=== PATIENT | male | born 1995 | race Caucasian/White ===

== ENCOUNTER 2019-10-04 09:21 | Observation (INO) | payer BC ==
[2019-10-04] MEDS ORDERED: Sodium Chloride 0.9% 1000 ML 1,000 ML IV STA (09:37)
[2019-10-04] MEDS ORDERED: Sodium Chloride 0.9% 1000 ML 1,000 ML ONE (09:45)
[2019-10-04] MEDS ORDERED: MOTRIN 600 MG PO ONE (09:46)
[2019-10-04] MEDS ORDERED: TYLENOL 325 MG PO ONE (09:46)
[2019-10-04] MEDS ORDERED: MOTRIN 600 MG ONE (09:47)
[2019-10-04] MEDS ORDERED: TYLENOL 325 MG ONE (09:48)
--- NOTE | 2019-10-04 09:48 | ERPHSYRPT ---
- History of Present Illness Time Seen by Provider: 10/04/19 09:37 Source: patient Exam Limitations: no limitations Patient Subjective Stated Complaint: PT states "I have passed out at work a couple of times and I hit my head last night." Triage Nursing Assessment: PT presented alert and oriented X 3, skin pwd. PT ambualtes with an upright steady gait, able to speak in clear full sentences. Pt in no apparent respiratory distress. Physician History: Patient is a 24-year-old male with a history of high functioning autism who presents to our ED with complaints of syncope. Patient states he had 2 episodes of syncope within the past month. Patient's most recent syncopal episode was today. Patient states that syncope is preceded by feeling faint or lightheaded. Patient's last syncopal episode was associated with head trauma. He had the right side of his head however he was wearing a hard hat. No neck pain. Cervical spine cleared clinically. No neck pain photophobia. Timing/Duration: today Precipitating Factors: none Context: sitting Loss of Consciousness: brief (seconds) Charcter of event(s): collapsed Allergies/Adverse Reactions: No Known Drug Allergies Allergy (Unverified 10/04/19 09:38) Home Medications: No Reportable Medications [No Reported Medications] 10/04/19 [History] Hx Tetanus, Diphtheria Vaccination/Date Given: No Hx Influenza Vaccination/Date Given: No Hx Pneumococcal Vaccination/Date Given: No Immunizations Up to Date: Yes - Past Medical History Pertinent Past Medical History: Yes Other Medical History: high functioning autism - Past Surgical History Past Surgical History: Yes Other Surgical History: hernia surgery - Social History Smoking Status: Current every day smoker How long have you smoked: years Exposure to second hand smoke: Yes Drug Use: none Patient Lives Alone: No Physical Exam - Nursing Vital Signs Nursing Vital Signs: Initial Vital Signs Temperature 103.0 F 10/04/19 09:27 Pulse Rate 89 10/04/19 09:27 Respiratory Rate 18 10/04/19 09:27 Blood Pressure 126/74 10/04/19 09:27 O2 Sat by Pulse Oximetry 98 10/04/19 09:27 Pain Scale Pain Intensity 0 - Physical Exam SpO2: 97 - Course EKG Interpreted by Me: RATE, NORMAL AXIS, NORMAL INTERVALS - CT Exams Head CT Interpretation: Negative, Tele-radiologist Report Ordered Tests: Active Orders 24 hr Category Date Time Status Medical Fee Clerk STAT Care 10/04/19 09:38 Active EKG-ER Only STAT Care 10/04/19 09:37 Active IV Insertion STAT Care 10/04/19 09:37 Active Pulse Oximetry (ED) STAT Care 10/04/19 09:37 Active HEAD WITHOUT CONTRAST [CT] Stat Exams 10/04/19 09:38 Completed BLOOD CULTURE Stat Lab 10/04/19 10:33 Received CBC W DIFF Stat Lab 10/04/19 09:46 Completed CMP Stat Lab 10/04/19 09:46 Completed D-DIMER QUANTITATIVE Stat Lab 10/04/19 09:46 Completed Manual Differential NC Stat Lab 10/04/19 09:46 Completed PROTIME WITH INR Stat Lab 10/04/19 09:46 Completed TSH, 3RD Generation Stat Lab 10/04/19 09:50 Completed UA W/RFX UR CULTURE Stat Lab 10/04/19 10:42 Completed Urine Triage Profile Stat Lab 10/04/19 10:42 Completed Transfer Order Routine Transfer 10/04/19 Ordered Medication Summary Discontinued Medications Generic Name Dose Route Start Last Admin Trade Name Freq PRN Reason Stop Dose Admin Acetaminophen 975 mg 10/04/19 09:46 10/04/19 09:48 Tylenol 325 Mg PO 10/04/19 09:47 975 mg STAT ONE Administration Acetaminophen Confirm 10/04/19 09:48 Tylenol 325 Mg Administered 10/04/19 09:49 Dose 975 mg .ROUTE .STK-MED ONE Sodium Chloride 1,000 mls @ 999 mls/hr 10/04/19 09:37 10/04/19 10:58 Sodium Chloride 0.9% 1000 Ml IV 10/04/19 10:37 Infused .Q1H1M STA Infusion Sodium Chloride Confirm 10/04/19 09:45 Sodium Chloride 0.9% 1000 Ml Administered 10/04/19 09:46 Dose 1,000 mls @ ud .ROUTE .STK-MED ONE Ibuprofen 600 mg 10/04/19 09:46 10/04/19 09:48 Motrin 600 Mg PO 10/04/19 09:47 600 mg STAT ONE Administration Ibuprofen Confirm 10/04/19 09:47 Motrin 600 Mg Administered 10/04/19 09:48 Dose 600 mg .ROUTE .STK-MED ONE Lab/Rad Data: Laboratory Result Diagrams 10/04/19 09:46 10/04/19 09:46 Laboratory Results 10/04/19 10/04/19 10/04/19 Range/Units 10:42 10:42 10:33 WBC (4.0-10.5) K/mm3 RBC (4.1-5.6) M/mm3 Hgb (12.5-18.0) gm/dl Hct (42-50) % MCV (78-100) fl MCH (26-32) pg MCHC (32-36) g/dl RDW (11.5-14.0) % Plt Count (150-450) K/mm3 MPV (7.5-11.0) fl Segmented Neutrophils (36.-66.) % Band Neutrophils (0.0-2.0) % Lymphocytes (Manual) (24-44) % Monocytes (Manual) (0.0-12.0) % Atypical Lymphocytes % Platelet Estimate (NORMAL) RBC Morphology PT (8.83-12.87) SECONDS INR (0.8-3.0) D-Dimer (215-500) ng/mL Sodium (137-145) mmol/L Potassium (3.5-5.1) mmol/L Chloride (98-107) mmol/L Carbon Dioxide (22-30) mmol/L Anion Gap (5-15) MEQ/L BUN (9-20) mg/dL Creatinine (0.66-1.25) mg/dL Estimated GFR ML/MIN Glucose (74-106) mg/dL Calcium (8.4-10.2) mg/dL Total Bilirubin (0.2-1.3) mg/dL AST (17-59) U/L ALT (0-50) U/L Alkaline Phosphatase (38-126) U/L Serum Total Protein (6.3-8.2) g/dL Albumin (3.5-5.0) g/dL TSH 3rd Generation (0.47-4.68) mIU/L Urine Color YELLOW (YELLOW) Urine Appearance CLEAR (CLEAR) Urine pH 6.0 (5-6) Ur Specific [place] 1.020 (1.005-1.025) Urine Protein NEGATIVE (Negative) Urine Ketones NEGATIVE (NEGATIVE) Urine Blood NEGATIVE (0-5) Jeffry/ul Urine Nitrite NEGATIVE (NEGATIVE) Urine Bilirubin NEGATIVE (NEGATIVE) Urine Urobilinogen 4 (0-1) mg/dL Ur Leukocyte Esterase NEGATIVE (NEGATIVE) Urine WBC (Auto) 0-2 (0-5) /HPF Urine RBC (Auto) NONE (0-2) /HPF U Epithel Cells (Auto) NONE (FEW) /HPF Urine Bacteria (Auto) NONE (NEGATIVE) /HPF Urine Mucus (Auto) SLIGHT (NEGATIVE) /HPF Urine Culture Reflexed NO (NO) Urine Glucose NEGATIVE (NEGATIVE) mg/dL Urine Opiates Level NEGATIVE (NEGATIVE) Ur Methadone NEGATIVE (NEGATIVE) Urine Barbiturates NEGATIVE (NEGATIVE) Ur Phencyclidine (PCP) NEGATIVE (NEGATIVE) Urine Amphetamine NEGATIVE (NEGATIVE) U Benzodiazepine Level NEGATIVE (NEGATIVE) Urine Cocaine NEGATIVE (NEGATIVE) Urine Marijuana (THC) NEGATIVE (NEGATIVE) Influenza Type A Ag POSITIVE (NEGATIVE) Influenza Type B Ag NEGATIVE (NEGATIVE) RSV (PCR) NEGATIVE (Negative) 10/04/19 10/04/19 10/04/19 Range/Units 09:50 09:46 09:46 WBC (4.0-10.5) K/mm3 RBC (4.1-5.6) M/mm3 Hgb (12.5-18.0) gm/dl Hct (42-50) % MCV (78-100) fl MCH (26-32) pg MCHC (32-36) g/dl RDW (11.5-14.0) % Plt Count (150-450) K/mm3 MPV (7.5-11.0) fl Segmented Neutrophils (36.-66.) % Band Neutrophils (0.0-2.0) % Lymphocytes (Manual) (24-44) % Monocytes (Manual) (0.0-12.0) % Atypical Lymphocytes % Platelet Estimate (NORMAL) RBC Morphology PT 13.2 H (8.83-12.87) SECONDS INR 1.16 (0.8-3.0) D-Dimer 372 (215-500) ng/mL Sodium 138 (137-145) mmol/L Potassium 3.8 (3.5-5.1) mmol/L Chloride 102 (98-107) mmol/L Carbon Dioxide 28 (22-30) mmol/L Anion Gap 11.8 (5-15) MEQ/L BUN 14 (9-20) mg/dL Creatinine 1.00 (0.66-1.25) mg/dL Estimated GFR > 60.0 ML/MIN Glucose 87 (74-106) mg/dL Calcium 9.2 (8.4-10.2) mg/dL Total Bilirubin 0.50 (0.2-1.3) mg/dL AST 31 (17-59) U/L ALT 21 (0-50) U/L Alkaline Phosphatase 123 (38-126) U/L Serum Total Protein 8.3 H (6.3-8.2) g/dL Albumin 4.7 (3.5-5.0) g/dL TSH 3rd Generation 0.230 L (0.47-4.68) mIU/L Urine Color (YELLOW) Urine Appearance (CLEAR) Urine pH (5-6) Ur Specific [place] (1.005-1.025) Urine Protein (Negative) Urine Ketones (NEGATIVE) Urine Blood (0-5) Jeffry/ul Urine Nitrite (NEGATIVE) Urine Bilirubin (NEGATIVE) Urine Urobilinogen (0-1) mg/dL Ur Leukocyte Esterase (NEGATIVE) Urine WBC (Auto) (0-5) /HPF Urine RBC (Auto) (0-2) /HPF U Epithel Cells (Auto) (FEW) /HPF Urine Bacteria (Auto) (NEGATIVE) /HPF Urine Mucus (Auto) (NEGATIVE) /HPF Urine Culture Reflexed (NO) Urine Glucose (NEGATIVE) mg/dL Urine Opiates Level (NEGATIVE) Ur Methadone (NEGATIVE) Urine Barbiturates (NEGATIVE) Ur Phencyclidine (PCP) (NEGATIVE) Urine Amphetamine (NEGATIVE) U Benzodiazepine Level (NEGATIVE) Urine Cocaine (NEGATIVE) Urine Marijuana (THC) (NEGATIVE) Influenza Type A Ag (NEGATIVE) Influenza Type B Ag (NEGATIVE) RSV (PCR) (Negative) 10/04/19 Range/Units 09:46 WBC 5.3 (4.0-10.5) K/mm3 RBC 4.85 (4.1-5.6) M/mm3 Hgb 14.2 (12.5-18.0) gm/dl Hct 41.6 L (42-50) % MCV 85.8 (78-100) fl MCH 29.3 (26-32) pg MCHC 34.1 (32-36) g/dl RDW 13.2 (11.5-14.0) % Plt Count 217 (150-450) K/mm3 MPV 9.7 (7.5-11.0) fl Segmented Neutrophils 78 H (36.-66.) % Band Neutrophils 1 (0.0-2.0) % Lymphocytes (Manual) 11 L (24-44) % Monocytes (Manual) 9 (0.0-12.0) % Atypical Lymphocytes 1 % Platelet Estimate NORMAL (NORMAL) RBC Morphology NORMAL PT (8.83-12.87) SECONDS INR (0.8-3.0) D-Dimer (215-500) ng/mL Sodium (137-145) mmol/L Potassium (3.5-5.1) mmol/L Chloride (98-107) mmol/L Carbon Dioxide (22-30) mmol/L Anion Gap (5-15) MEQ/L BUN (9-20) mg/dL Creatinine (0.66-1.25) mg/dL Estimated GFR ML/MIN Glucose (74-106) mg/dL Calcium (8.4-10.2) mg/dL Total Bilirubin (0.2-1.3) mg/dL AST (17-59) U/L ALT (0-50) U/L Alkaline Phosphatase (38-126) U/L Serum Total Protein (6.3-8.2) g/dL Albumin (3.5-5.0) g/dL TSH 3rd Generation (0.47-4.68) mIU/L Urine Color (YELLOW) Urine Appearance (CLEAR) Urine pH (5-6) Ur Specific [place] (1.005-1.025) Urine Protein (Negative) Urine Ketones (NEGATIVE) Urine Blood (0-5) Jeffry/ul Urine Nitrite (NEGATIVE) Urine Bilirubin (NEGATIVE) Urine Urobilinogen (0-1) mg/dL Ur Leukocyte Esterase (NEGATIVE) Urine WBC (Auto) (0-5) /HPF Urine RBC (Auto) (0-2) /HPF U Epithel Cells (Auto) (FEW) /HPF Urine Bacteria (Auto) (NEGATIVE) /HPF Urine Mucus (Auto) (NEGATIVE) /HPF Urine Culture Reflexed (NO) Urine Glucose (NEGATIVE) mg/dL Urine Opiates Level (NEGATIVE) Ur Methadone (NEGATIVE) Urine Barbiturates (NEGATIVE) Ur Phencyclidine (PCP) (NEGATIVE) Urine Amphetamine (NEGATIVE) U Benzodiazepine Level (NEGATIVE) Urine Cocaine (NEGATIVE) Urine Marijuana (THC) (NEGATIVE) Influenza Type A Ag (NEGATIVE) Influenza Type B Ag (NEGATIVE) RSV (PCR) (Negative) - Progress Progress Note: 10/04/19 11:42 Patient reassessed. He feels somewhat better. Work-up reveals that patient is influenza A positive. He additionally has hypothyroidism. In light of his syncope and collapse, ongoing generalized weakness we will admit patient to observation for further evaluation and treatment. Plan of care discussed with patient. He agrees to admission [facility] for further evaluation and treatment. Case discussed with Dr. Hong who accepts admission to observation. Discussed with : Lev Will see patient in: hospital (observation) Counseled pt/family regarding: lab results, diagnosis, need for follow-up, rad results - Departure Departure Disposition: In-patient Admission Clinical Impression: Syncope and collapse, Influenza A, Hyperthyroidism, Generalized weakness Condition: Stable Critical Care Time: No Referrals: DOCTOR,NO FAMILY [Primary Care Provider] - Additional Instructions: Admission Note: The patient, RILEY CARRILLO, 24 y/o, M admitted by , was given written information regarding hospital policies, unit procedures and contact persons. Patient was admitted after showing signs of generalized weakness, hypothyroidism and syncope.
[2019-10-04 09:54] LABS: Hematocrit 41.6 % (42-50); Hemoglobin 14.2 gm/dl (12.5-18.0); Mean Cell Volume 85.8 fl (78-100); Mean Corpuscular Hemoglobin 29.3 pg (26-32); Mean Corpuscular Hgb Concent. 34.1 g/dl (32-36); Mean Platelet Volume 9.7 fl (7.5-11.0); Platelet Count 217 K/mm3 (150-450); Red Blood Count 4.85 M/mm3 (4.1-5.6); Red Cell Distribution Width 13.2 % (11.5-14.0); White Blood Count 5.3 K/mm3 (4.0-10.5)
--- NOTE | 2019-10-04 09:59 | XRAY ---
Indication: Syncope. Right head injury. Multiple contiguous axial images obtained through the head without contrast. Comparison: None Normal appearing brain parenchyma, ventricles, and bony calvarium. Visualized paranasal sinuses and mastoid air cells are clear. Impression: Normal CT head without contrast exam.
[2019-10-04 10:02] LABS: INR 1.16 (0.8-3.0); PROTIME 13.2 SECONDS (8.83-12.87)
[2019-10-04 10:08] LABS: ALBUMIN 4.7 g/dL (3.5-5.0); ALKALINE PHOSPHATASE 123 U/L (38-126); ANION GAP 11.8 MEQ/L (5-15); BLOOD UREA NITROGEN 14 mg/dL (9-20); CHLORIDE 102 mmol/L (98-107); Calcium 9.2 mg/dL (8.4-10.2); Carbon Dioxide 28 mmol/L (22-30); Glucose 87 mg/dL (74-106); Potassium 3.8 mmol/L (3.5-5.1); SGOT/AST 31 U/L (17-59); SGPT/ALT 21 U/L (0-50); SODIUM 138 mmol/L (137-145); Total Protein 8.3 g/dL (6.3-8.2)
[2019-10-04 11:00] LABS: Appearance CLEAR (CLEAR); Bilirubin NEGATIVE (NEGATIVE); Blood NEGATIVE Ery/ul (0-5); Glucose NEGATIVE (NEGATIVE); Ketones NEGATIVE (NEGATIVE); Leukocyte Esterase NEGATIVE (NEGATIVE); Mucus SLIGHT /HPF (NEGATIVE); Nitrite NEGATIVE (NEGATIVE); Protein,Urine Dip NEGATIVE (Negative); Urobilinogen 4 mg/dL (0-1); WBC 0-2 /HPF (0-5)
[2019-10-04 11:22] LABS: INFLUENZA A POSITIVE (NEGATIVE); INFLUENZA B NEGATIVE (NEGATIVE); RESPIRATORY SYNCTIAL VIRUS NEGATIVE (Negative)
[2019-10-04 11:26] LABS: Amphetamine,Urine NEGATIVE (NEGATIVE); Barbiturate,Urine NEGATIVE (NEGATIVE); Benzodiazepine,Urine NEGATIVE (NEGATIVE); Cocaine,Urine NEGATIVE (NEGATIVE); Methadone,Urine NEGATIVE (NEGATIVE); Opiate,Urine NEGATIVE (NEGATIVE); PCP,Urine NEGATIVE (NEGATIVE); THC,Urine NEGATIVE (NEGATIVE)
[2019-10-04 11:32] LABS: ATYPICAL LYMPHS 1 %; BAND 1 % (0.0-2.0); Lymphocytes 11 % (24-44); Monocyte 9 % (0.0-12.0); Neutrophils 78 % (36.-66.); Total Cells Counted 100
[2019-10-04 11:33] LABS: Platelet Estimate NORMAL (NORMAL)
[2019-10-04] MEDS: Sodium Chloride 0.9% 1000 ML 1,000 ML IV SCH ×2 (12:42→22:47)
--- NOTE | 2019-10-04 17:45 | PCM.HP ---
History of Present Illness - Chief Complaint Chief Complaint: syncope History of Present Illness: is a 24 year old male pt with no local MD, with high functioning autism , who came to ER after syncopal episode last night. He is a fairly poor historian. He was found to have Influenza A and does state he's had a cough for "a while" but less than a week. He was standing in a meeting, started feeling hot, tried to sit down and missed and passed completely out. About a month and a half ago he passed out as well. - Review of Systems Constitutional: Fever (103 on admission), Weakness Respiratory: Cough, Short Of Breath Neurological: Other (syncope) All Other Systems: Reviewed and Negative Medications & Allergies Home Medications: Home Medication List No Reportable Medications [No Reported Medications] 10/04/19 [History Confirmed 10/04/19] Allergies/Adverse Reactions: Allergies Allergy/AdvReac Type Severity Reaction Status Date / Time No Known Drug Allergies Allergy Unverified 10/04/19 09:38 - Past Medical History Past Medical History: Yes Comment: high functioning autism - Past Surgical History Past Surgical History: Yes Other Surgical History: hernia surgery - Social History Smoking Status: Current every day smoker How long have you smoked: 5 years Exposure to second hand smoke: Yes Alcohol: Rarely Drug Use: none - Physical Exam Vital Signs: Vital Signs - 24 hr Temp Pulse Resp BP Pulse Ox 10/04/19 15:54 98.2 F 82 18 98/56 98 10/04/19 13:14 99.8 F 90 18 96/47 95 10/04/19 11:54 99.8 F 90 96/47 95 10/04/19 11:44 97 10/04/19 11:36 100.1 F 98 H 18 100/52 96 10/04/19 10:58 92 H 16 93/55 97 10/04/19 10:23 93 H 18 113/64 99 10/04/19 09:41 97 10/04/19 09:27 103.0 F 89 18 126/74 98 General Appearance: no apparent distress, alert, other (somewhat disheveled) Neurologic Exam: oriented x 3, cooperative, other (decreased affect) Eye Exam: eyes nml inspection, other (fair eye contact) Ears, Nose, Throat Exam: moist mucous membranes Neck Exam: normal inspection, non-tender, No thyromegaly Respiratory Exam: lungs clear, diminished breath sounds, No crackles/rales, No rhonchi, No wheezing Cardiovascular Exam: regular rate/rhythm, normal heart sounds, No murmur Gastrointestinal/Abdomen Exam: soft, normal bowel sounds, No tenderness, No distention, No mass, No guarding, No rebound Extremity Exam: normal inspection, No pedal edema, No swelling Skin Exam: normal color, warm, dry, No rash Results - Labs Lab/Micro Results: Lab Results-Last 24 Hours 10/04/19 10/04/19 10/04/19 Range/Units 09:46 09:46 09:46 WBC 5.3 (4.0-10.5) K/mm3 RBC 4.85 (4.1-5.6) M/mm3 Hgb 14.2 (12.5-18.0) gm/dl Hct 41.6 L (42-50) % MCV 85.8 (78-100) fl MCH 29.3 (26-32) pg MCHC 34.1 (32-36) g/dl RDW 13.2 (11.5-14.0) % Plt Count 217 (150-450) K/mm3 MPV 9.7 (7.5-11.0) fl Segmented Neutrophils 78 H (36.-66.) % Band Neutrophils 1 (0.0-2.0) % Lymphocytes (Manual) 11 L (24-44) % Monocytes (Manual) 9 (0.0-12.0) % Atypical Lymphocytes 1 % Platelet Estimate NORMAL (NORMAL) RBC Morphology NORMAL PT 13.2 H (8.83-12.87) SECONDS INR 1.16 (0.8-3.0) D-Dimer 372 (215-500) ng/mL Sodium 138 (137-145) mmol/L Potassium 3.8 (3.5-5.1) mmol/L Chloride 102 (98-107) mmol/L Carbon Dioxide 28 (22-30) mmol/L Anion Gap 11.8 (5-15) MEQ/L BUN 14 (9-20) mg/dL Creatinine 1.00 (0.66-1.25) mg/dL Estimated GFR > 60.0 ML/MIN Glucose 87 (74-106) mg/dL Calcium 9.2 (8.4-10.2) mg/dL Total Bilirubin 0.50 (0.2-1.3) mg/dL AST 31 (17-59) U/L ALT 21 (0-50) U/L Alkaline Phosphatase 123 (38-126) U/L Serum Total Protein 8.3 H (6.3-8.2) g/dL Albumin 4.7 (3.5-5.0) g/dL TSH 3rd Generation (0.47-4.68) mIU/L Urine Color (YELLOW) Urine Appearance (CLEAR) Urine pH (5-6) Ur Specific [place] (1.005-1.025) Urine Protein (Negative) Urine Ketones (NEGATIVE) Urine Blood (0-5) Jeffry/ul Urine Nitrite (NEGATIVE) Urine Bilirubin (NEGATIVE) Urine Urobilinogen (0-1) mg/dL Ur Leukocyte Esterase (NEGATIVE) Urine WBC (Auto) (0-5) /HPF Urine RBC (Auto) (0-2) /HPF U Epithel Cells (Auto) (FEW) /HPF Urine Bacteria (Auto) (NEGATIVE) /HPF Urine Mucus (Auto) (NEGATIVE) /HPF Urine Culture Reflexed (NO) Urine Glucose (NEGATIVE) mg/dL Urine Opiates Level (NEGATIVE) Ur Methadone (NEGATIVE) Urine Barbiturates (NEGATIVE) Ur Phencyclidine (PCP) (NEGATIVE) Urine Amphetamine (NEGATIVE) U Benzodiazepine Level (NEGATIVE) Urine Cocaine (NEGATIVE) Urine Marijuana (THC) (NEGATIVE) Influenza Type A Ag (NEGATIVE) Influenza Type B Ag (NEGATIVE) RSV (PCR) (Negative) 10/04/19 10/04/19 10/04/19 Range/Units 09:50 10:33 10:42 WBC (4.0-10.5) K/mm3 RBC (4.1-5.6) M/mm3 Hgb (12.5-18.0) gm/dl Hct (42-50) % MCV (78-100) fl MCH (26-32) pg MCHC (32-36) g/dl RDW (11.5-14.0) % Plt Count (150-450) K/mm3 MPV (7.5-11.0) fl Segmented Neutrophils (36.-66.) % Band Neutrophils (0.0-2.0) % Lymphocytes (Manual) (24-44) % Monocytes (Manual) (0.0-12.0) % Atypical Lymphocytes % Platelet Estimate (NORMAL) RBC Morphology PT (8.83-12.87) SECONDS INR (0.8-3.0) D-Dimer (215-500) ng/mL Sodium (137-145) mmol/L Potassium (3.5-5.1) mmol/L Chloride (98-107) mmol/L Carbon Dioxide (22-30) mmol/L Anion Gap (5-15) MEQ/L BUN (9-20) mg/dL Creatinine (0.66-1.25) mg/dL Estimated GFR ML/MIN Glucose (74-106) mg/dL Calcium (8.4-10.2) mg/dL Total Bilirubin (0.2-1.3) mg/dL AST (17-59) U/L ALT (0-50) U/L Alkaline Phosphatase (38-126) U/L Serum Total Protein (6.3-8.2) g/dL Albumin (3.5-5.0) g/dL TSH 3rd Generation 0.230 L (0.47-4.68) mIU/L Urine Color YELLOW (YELLOW) Urine Appearance CLEAR (CLEAR) Urine pH 6.0 (5-6) Ur Specific [place] 1.020 (1.005-1.025) Urine Protein NEGATIVE (Negative) Urine Ketones NEGATIVE (NEGATIVE) Urine Blood NEGATIVE (0-5) Jeffry/ul Urine Nitrite NEGATIVE (NEGATIVE) Urine Bilirubin NEGATIVE (NEGATIVE) Urine Urobilinogen 4 (0-1) mg/dL Ur Leukocyte Esterase NEGATIVE (NEGATIVE) Urine WBC (Auto) 0-2 (0-5) /HPF Urine RBC (Auto) NONE (0-2) /HPF U Epithel Cells (Auto) NONE (FEW) /HPF Urine Bacteria (Auto) NONE (NEGATIVE) /HPF Urine Mucus (Auto) SLIGHT (NEGATIVE) /HPF Urine Culture Reflexed NO (NO) Urine Glucose NEGATIVE (NEGATIVE) mg/dL Urine Opiates Level (NEGATIVE) Ur Methadone (NEGATIVE) Urine Barbiturates (NEGATIVE) Ur Phencyclidine (PCP) (NEGATIVE) Urine Amphetamine (NEGATIVE) U Benzodiazepine Level (NEGATIVE) Urine Cocaine (NEGATIVE) Urine Marijuana (THC) (NEGATIVE) Influenza Type A Ag POSITIVE (NEGATIVE) Influenza Type B Ag NEGATIVE (NEGATIVE) RSV (PCR) NEGATIVE (Negative) 10/04/19 Range/Units 10:42 WBC (4.0-10.5) K/mm3 RBC (4.1-5.6) M/mm3 Hgb (12.5-18.0) gm/dl Hct (42-50) % MCV (78-100) fl MCH (26-32) pg MCHC (32-36) g/dl RDW (11.5-14.0) % Plt Count (150-450) K/mm3 MPV (7.5-11.0) fl Segmented Neutrophils (36.-66.) % Band Neutrophils (0.0-2.0) % Lymphocytes (Manual) (24-44) % Monocytes (Manual) (0.0-12.0) % Atypical Lymphocytes % Platelet Estimate (NORMAL) RBC Morphology PT (8.83-12.87) SECONDS INR (0.8-3.0) D-Dimer (215-500) ng/mL Sodium (137-145) mmol/L Potassium (3.5-5.1) mmol/L Chloride (98-107) mmol/L Carbon Dioxide (22-30) mmol/L Anion Gap (5-15) MEQ/L BUN (9-20) mg/dL Creatinine (0.66-1.25) mg/dL Estimated GFR ML/MIN Glucose (74-106) mg/dL Calcium (8.4-10.2) mg/dL Total Bilirubin (0.2-1.3) mg/dL AST (17-59) U/L ALT (0-50) U/L Alkaline Phosphatase (38-126) U/L Serum Total Protein (6.3-8.2) g/dL Albumin (3.5-5.0) g/dL TSH 3rd Generation (0.47-4.68) mIU/L Urine Color (YELLOW) Urine Appearance (CLEAR) Urine pH (5-6) Ur Specific [place] (1.005-1.025) Urine Protein (Negative) Urine Ketones (NEGATIVE) Urine Blood (0-5) Jeffry/ul Urine Nitrite (NEGATIVE) Urine Bilirubin (NEGATIVE) Urine Urobilinogen (0-1) mg/dL Ur Leukocyte Esterase (NEGATIVE) Urine WBC (Auto) (0-5) /HPF Urine RBC (Auto) (0-2) /HPF U Epithel Cells (Auto) (FEW) /HPF Urine Bacteria (Auto) (NEGATIVE) /HPF Urine Mucus (Auto) (NEGATIVE) /HPF Urine Culture Reflexed (NO) Urine Glucose (NEGATIVE) mg/dL Urine Opiates Level NEGATIVE (NEGATIVE) Ur Methadone NEGATIVE (NEGATIVE) Urine Barbiturates NEGATIVE (NEGATIVE) Ur Phencyclidine (PCP) NEGATIVE (NEGATIVE) Urine Amphetamine NEGATIVE (NEGATIVE) U Benzodiazepine Level NEGATIVE (NEGATIVE) Urine Cocaine NEGATIVE (NEGATIVE) Urine Marijuana (THC) NEGATIVE (NEGATIVE) Influenza Type A Ag (NEGATIVE) Influenza Type B Ag (NEGATIVE) RSV (PCR) (Negative) - Radiology Impressions Radiology Exams & Impressions: Radiology Procedures Category Date Time Status HEAD WITHOUT CONTRAST [CT] Stat Exams 10/04/19 09:38 Completed Assessment/Plan (1) Syncope and collapse Current Visit: Yes Status: Acute Assessment & Plan: WIll do echo and MRI brain tomorrow. Orthostats. Could be related to flu A for this episode but did have a previous episode. Head CT neg in ER. Code(s): R55 - SYNCOPE AND COLLAPSE (2) Influenza A Current Visit: Yes Status: Acute Assessment & Plan: Will start Tamiflu as I'm unsure how long he's been sick. CXR. Code(s): J10.1 - FLU DUE TO OTH IDENT INFLUENZA VIRUS W OTH RESP MANIFEST (3) Generalized weakness Current Visit: Yes Status: Acute Code(s): R53.1 - WEAKNESS (4) Hyperthyroidism Current Visit: Yes Status: Acute Assessment & Plan: check T3/T4 Code(s): E05.90 - THYROTOXICOSIS, UNSP WITHOUT THYROTOXIC CRISIS OR STORM
[2019-10-04] MEDS: Tamiflu 75MG Capsule PO SCH ×2 (18:45→21:15)
[2019-10-04] MEDS: TYLENOL 325 MG PO PRN (22:30)
[2019-10-05] MEDS: TYLENOL 325 MG PO PRN ×3 (03:43→17:00)
[2019-10-05 05:43] LABS: Hematocrit 38.1 % (42-50); Mean Cell Volume 86.2 fl (78-100); Mean Corpuscular Hemoglobin 29.4 pg (26-32); Mean Corpuscular Hgb Concent. 34.1 g/dl (32-36); Mean Platelet Volume 10.2 fl (7.5-11.0); Platelet Count 163 K/mm3 (150-450); Red Blood Count 4.42 M/mm3 (4.1-5.6); Red Cell Distribution Width 13.2 % (11.5-14.0); White Blood Count 4.1 K/mm3 (4.0-10.5)
[2019-10-05 06:14] LABS: ALBUMIN 3.8 g/dL (3.5-5.0); ALKALINE PHOSPHATASE 102 U/L (38-126); ANION GAP 7.1 MEQ/L (5-15); BLOOD UREA NITROGEN 10 mg/dL (9-20); CHLORIDE 107 mmol/L (98-107); Calcium 8.6 mg/dL (8.4-10.2); Carbon Dioxide 24 mmol/L (22-30); Creatinine 1 0.84 mg/dL (0.66-1.25); Glucose 95 mg/dL (74-106); Potassium 4.2 mmol/L (3.5-5.1); SGOT/AST 30 U/L (17-59); SGPT/ALT 17 U/L (0-50); SODIUM 134 mmol/L (137-145); Total Protein 6.8 g/dL (6.3-8.2)
[2019-10-05 06:16] LABS: TROPONIN < 0.012 ng/mL (0.000-0.034)
[2019-10-05 06:39] LABS: ATYPICAL LYMPHS 2 %; BAND 3 % (0.0-2.0); Lymphocytes 33 % (24-44); Monocyte 8 % (0.0-12.0); Neutrophils 54 % (36.-66.); Platelet Estimate NORMAL (NORMAL); Total Cells Counted 100
[2019-10-05] MEDS ORDERED: Valium 5 MG PO PRN (08:35)
--- NOTE | 2019-10-05 08:35 | PCM.NOTE ---
Date and Time: 10/05/19830 Subjective Assessment: He had temp to 103 at 0927 yesterday, and to 102.3 at midnight last night. He says he's feeling better. Grandma at bedside today. He has been eating OK, although really didn't feel like eating last night when he was "hot." - Review of Systems Constitutional: Fever Respiratory: Cough Abdominal/Gastrointestinal: Appetite Changes Objective Exam General Appearance: no apparent distress, alert Neurologic Exam: oriented x 3, cooperative Skin Exam: normal color, warm, dry, No rash Respiratory Exam: lungs clear, diminished breath sounds, No crackles/rales, No wheezing Cardiovascular Exam: regular rate/rhythm, normal heart sounds, No murmur Gastrointestinal/Abdomen Exam: soft, normal bowel sounds, No tenderness, No distention, No mass, No guarding, No rebound OBJECTIVE DATA Vital Signs: Vital Signs - 24 hr Temp Pulse Resp BP Pulse Ox 10/05/19 07:27 99.2 F 85 16 108/62 96 10/05/19 04:00 102.0 F 80 18 98/50 98 10/05/19 00:00 102.3 F 88 20 102/60 96 10/04/19 20:00 20 10/04/19 19:00 101.0 F 83 22 100/60 98 10/04/19 15:54 98.2 F 82 18 98/56 98 10/04/19 13:14 99.8 F 90 18 96/47 95 10/04/19 11:54 99.8 F 90 96/47 95 10/04/19 11:44 97 10/04/19 11:36 100.1 F 98 H 18 100/52 96 10/04/19 10:58 92 H 16 93/55 97 10/04/19 10:23 93 H 18 113/64 99 10/04/19 09:41 97 10/04/19 09:27 103.0 F 89 18 126/74 98 Pain Assessment - Last Documented Pain Intensity 0 Pain Scale Used 0-10 Pain Scale Intake and Output: Intake & Output 10/02/19 10/03/19 10/04/19 10/05/19 11:59 11:59 11:59 11:59 Intake Total 1613 Output Total 1950 Balance -337 Weight 46.6 kg 48.3 kg Lab Results: Lab Results-Last 24 Hours 10/04/19 10/04/19 10/04/19 Range/Units 09:46 09:46 09:46 WBC 5.3 (4.0-10.5) K/mm3 RBC 4.85 (4.1-5.6) M/mm3 Hgb 14.2 (12.5-18.0) gm/dl Hct 41.6 L (42-50) % MCV 85.8 (78-100) fl MCH 29.3 (26-32) pg MCHC 34.1 (32-36) g/dl RDW 13.2 (11.5-14.0) % Plt Count 217 (150-450) K/mm3 MPV 9.7 (7.5-11.0) fl Segmented Neutrophils 78 H (36.-66.) % Band Neutrophils 1 (0.0-2.0) % Lymphocytes (Manual) 11 L (24-44) % Monocytes (Manual) 9 (0.0-12.0) % Atypical Lymphocytes 1 % Platelet Estimate NORMAL (NORMAL) RBC Morphology NORMAL PT 13.2 H (8.83-12.87) SECONDS INR 1.16 (0.8-3.0) D-Dimer 372 (215-500) ng/mL Sodium 138 (137-145) mmol/L Potassium 3.8 (3.5-5.1) mmol/L Chloride 102 (98-107) mmol/L Carbon Dioxide 28 (22-30) mmol/L Anion Gap 11.8 (5-15) MEQ/L BUN 14 (9-20) mg/dL Creatinine 1.00 (0.66-1.25) mg/dL Estimated GFR > 60.0 ML/MIN Glucose 87 (74-106) mg/dL Calcium 9.2 (8.4-10.2) mg/dL Total Bilirubin 0.50 (0.2-1.3) mg/dL AST 31 (17-59) U/L ALT 21 (0-50) U/L Alkaline Phosphatase 123 (38-126) U/L Troponin I (0.000-0.034) ng/mL Serum Total Protein 8.3 H (6.3-8.2) g/dL Albumin 4.7 (3.5-5.0) g/dL Free T4 (0.76-1.46) ng/dL TSH 3rd Generation (0.47-4.68) mIU/L Urine Color (YELLOW) Urine Appearance (CLEAR) Urine pH (5-6) Ur Specific [place] (1.005-1.025) Urine Protein (Negative) Urine Ketones (NEGATIVE) Urine Blood (0-5) Jeffry/ul Urine Nitrite (NEGATIVE) Urine Bilirubin (NEGATIVE) Urine Urobilinogen (0-1) mg/dL Ur Leukocyte Esterase (NEGATIVE) Urine WBC (Auto) (0-5) /HPF Urine RBC (Auto) (0-2) /HPF U Epithel Cells (Auto) (FEW) /HPF Urine Bacteria (Auto) (NEGATIVE) /HPF Urine Mucus (Auto) (NEGATIVE) /HPF Urine Culture Reflexed (NO) Urine Glucose (NEGATIVE) mg/dL Urine Opiates Level (NEGATIVE) Ur Methadone (NEGATIVE) Urine Barbiturates (NEGATIVE) Ur Phencyclidine (PCP) (NEGATIVE) Urine Amphetamine (NEGATIVE) U Benzodiazepine Level (NEGATIVE) Urine Cocaine (NEGATIVE) Urine Marijuana (THC) (NEGATIVE) Influenza Type A Ag (NEGATIVE) Influenza Type B Ag (NEGATIVE) RSV (PCR) (Negative) 10/04/19 10/04/19 10/04/19 Range/Units 09:50 10:33 10:42 WBC (4.0-10.5) K/mm3 RBC (4.1-5.6) M/mm3 Hgb (12.5-18.0) gm/dl Hct (42-50) % MCV (78-100) fl MCH (26-32) pg MCHC (32-36) g/dl RDW (11.5-14.0) % Plt Count (150-450) K/mm3 MPV (7.5-11.0) fl Segmented Neutrophils (36.-66.) % Band Neutrophils (0.0-2.0) % Lymphocytes (Manual) (24-44) % Monocytes (Manual) (0.0-12.0) % Atypical Lymphocytes % Platelet Estimate (NORMAL) RBC Morphology PT (8.83-12.87) SECONDS INR (0.8-3.0) D-Dimer (215-500) ng/mL Sodium (137-145) mmol/L Potassium (3.5-5.1) mmol/L Chloride (98-107) mmol/L Carbon Dioxide (22-30) mmol/L Anion Gap (5-15) MEQ/L BUN (9-20) mg/dL Creatinine (0.66-1.25) mg/dL Estimated GFR ML/MIN Glucose (74-106) mg/dL Calcium (8.4-10.2) mg/dL Total Bilirubin (0.2-1.3) mg/dL AST (17-59) U/L ALT (0-50) U/L Alkaline Phosphatase (38-126) U/L Troponin I (0.000-0.034) ng/mL Serum Total Protein (6.3-8.2) g/dL Albumin (3.5-5.0) g/dL Free T4 (0.76-1.46) ng/dL TSH 3rd Generation 0.230 L (0.47-4.68) mIU/L Urine Color YELLOW (YELLOW) Urine Appearance CLEAR (CLEAR) Urine pH 6.0 (5-6) Ur Specific [place] 1.020 (1.005-1.025) Urine Protein NEGATIVE (Negative) Urine Ketones NEGATIVE (NEGATIVE) Urine Blood NEGATIVE (0-5) Jeffry/ul Urine Nitrite NEGATIVE (NEGATIVE) Urine Bilirubin NEGATIVE (NEGATIVE) Urine Urobilinogen 4 (0-1) mg/dL Ur Leukocyte Esterase NEGATIVE (NEGATIVE) Urine WBC (Auto) 0-2 (0-5) /HPF Urine RBC (Auto) NONE (0-2) /HPF U Epithel Cells (Auto) NONE (FEW) /HPF Urine Bacteria (Auto) NONE (NEGATIVE) /HPF Urine Mucus (Auto) SLIGHT (NEGATIVE) /HPF Urine Culture Reflexed NO (NO) Urine Glucose NEGATIVE (NEGATIVE) mg/dL Urine Opiates Level (NEGATIVE) Ur Methadone (NEGATIVE) Urine Barbiturates (NEGATIVE) Ur Phencyclidine (PCP) (NEGATIVE) Urine Amphetamine (NEGATIVE) U Benzodiazepine Level (NEGATIVE) Urine Cocaine (NEGATIVE) Urine Marijuana (THC) (NEGATIVE) Influenza Type A Ag POSITIVE (NEGATIVE) Influenza Type B Ag NEGATIVE (NEGATIVE) RSV (PCR) NEGATIVE (Negative) 10/04/19 10/04/19 10/05/19 Range/Units 10:42 Unknown 04:55 WBC 4.1 (4.0-10.5) K/mm3 RBC 4.42 (4.1-5.6) M/mm3 Hgb 13.0 (12.5-18.0) gm/dl Hct 38.1 L (42-50) % MCV 86.2 (78-100) fl MCH 29.4 (26-32) pg MCHC 34.1 (32-36) g/dl RDW 13.2 (11.5-14.0) % Plt Count 163 (150-450) K/mm3 MPV 10.2 (7.5-11.0) fl Segmented Neutrophils 54 (36.-66.) % Band Neutrophils 3 H (0.0-2.0) % Lymphocytes (Manual) 33 (24-44) % Monocytes (Manual) 8 (0.0-12.0) % Atypical Lymphocytes 2 % Platelet Estimate NORMAL (NORMAL) RBC Morphology PT (8.83-12.87) SECONDS INR (0.8-3.0) D-Dimer (215-500) ng/mL Sodium (137-145) mmol/L Potassium (3.5-5.1) mmol/L Chloride (98-107) mmol/L Carbon Dioxide (22-30) mmol/L Anion Gap (5-15) MEQ/L BUN (9-20) mg/dL Creatinine (0.66-1.25) mg/dL Estimated GFR ML/MIN Glucose (74-106) mg/dL Calcium (8.4-10.2) mg/dL Total Bilirubin (0.2-1.3) mg/dL AST (17-59) U/L ALT (0-50) U/L Alkaline Phosphatase (38-126) U/L Troponin I (0.000-0.034) ng/mL Serum Total Protein (6.3-8.2) g/dL Albumin (3.5-5.0) g/dL Free T4 1.04 (0.76-1.46) ng/dL TSH 3rd Generation (0.47-4.68) mIU/L Urine Color (YELLOW) Urine Appearance (CLEAR) Urine pH (5-6) Ur Specific [place] (1.005-1.025) Urine Protein (Negative) Urine Ketones (NEGATIVE) Urine Blood (0-5) Jeffry/ul Urine Nitrite (NEGATIVE) Urine Bilirubin (NEGATIVE) Urine Urobilinogen (0-1) mg/dL Ur Leukocyte Esterase (NEGATIVE) Urine WBC (Auto) (0-5) /HPF Urine RBC (Auto) (0-2) /HPF U Epithel Cells (Auto) (FEW) /HPF Urine Bacteria (Auto) (NEGATIVE) /HPF Urine Mucus (Auto) (NEGATIVE) /HPF Urine Culture Reflexed (NO) Urine Glucose (NEGATIVE) mg/dL Urine Opiates Level NEGATIVE (NEGATIVE) Ur Methadone NEGATIVE (NEGATIVE) Urine Barbiturates NEGATIVE (NEGATIVE) Ur Phencyclidine (PCP) NEGATIVE (NEGATIVE) Urine Amphetamine NEGATIVE (NEGATIVE) U Benzodiazepine Level NEGATIVE (NEGATIVE) Urine Cocaine NEGATIVE (NEGATIVE) Urine Marijuana (THC) NEGATIVE (NEGATIVE) Influenza Type A Ag (NEGATIVE) Influenza Type B Ag (NEGATIVE) RSV (PCR) (Negative) 10/05/19 Range/Units 04:55 WBC (4.0-10.5) K/mm3 RBC (4.1-5.6) M/mm3 Hgb (12.5-18.0) gm/dl Hct (42-50) % MCV (78-100) fl MCH (26-32) pg MCHC (32-36) g/dl RDW (11.5-14.0) % Plt Count (150-450) K/mm3 MPV (7.5-11.0) fl Segmented Neutrophils (36.-66.) % Band Neutrophils (0.0-2.0) % Lymphocytes (Manual) (24-44) % Monocytes (Manual) (0.0-12.0) % Atypical Lymphocytes % Platelet Estimate (NORMAL) RBC Morphology PT (8.83-12.87) SECONDS INR (0.8-3.0) D-Dimer (215-500) ng/mL Sodium 134 L (137-145) mmol/L Potassium 4.2 (3.5-5.1) mmol/L Chloride 107 (98-107) mmol/L Carbon Dioxide 24 (22-30) mmol/L Anion Gap 7.1 (5-15) MEQ/L BUN 10 (9-20) mg/dL Creatinine 0.84 (0.66-1.25) mg/dL Estimated GFR > 60.0 ML/MIN Glucose 95 (74-106) mg/dL Calcium 8.6 (8.4-10.2) mg/dL Total Bilirubin 0.40 (0.2-1.3) mg/dL AST 30 (17-59) U/L ALT 17 (0-50) U/L Alkaline Phosphatase 102 (38-126) U/L Troponin I < 0.012 (0.000-0.034) ng/mL Serum Total Protein 6.8 (6.3-8.2) g/dL Albumin 3.8 (3.5-5.0) g/dL Free T4 (0.76-1.46) ng/dL TSH 3rd Generation (0.47-4.68) mIU/L Urine Color (YELLOW) Urine Appearance (CLEAR) Urine pH (5-6) Ur Specific [place] (1.005-1.025) Urine Protein (Negative) Urine Ketones (NEGATIVE) Urine Blood (0-5) Jeffry/ul Urine Nitrite (NEGATIVE) Urine Bilirubin (NEGATIVE) Urine Urobilinogen (0-1) mg/dL Ur Leukocyte Esterase (NEGATIVE) Urine WBC (Auto) (0-5) /HPF Urine RBC (Auto) (0-2) /HPF U Epithel Cells (Auto) (FEW) /HPF Urine Bacteria (Auto) (NEGATIVE) /HPF Urine Mucus (Auto) (NEGATIVE) /HPF Urine Culture Reflexed (NO) Urine Glucose (NEGATIVE) mg/dL Urine Opiates Level (NEGATIVE) Ur Methadone (NEGATIVE) Urine Barbiturates (NEGATIVE) Ur Phencyclidine (PCP) (NEGATIVE) Urine Amphetamine (NEGATIVE) U Benzodiazepine Level (NEGATIVE) Urine Cocaine (NEGATIVE) Urine Marijuana (THC) (NEGATIVE) Influenza Type A Ag (NEGATIVE) Influenza Type B Ag (NEGATIVE) RSV (PCR) (Negative) Radiology Exams: Radiology Procedures Category Date Time Status CHEST 2 VIEWS (PA AND LAT) Routine Exams 10/04/19 18:30 Taken ECHO W/2D AND DOPPLER [US] Routine Exams 10/05/19 09:00 Ordered HEAD WITHOUT CONTRAST [CT] Stat Exams 10/04/19 09:38 Completed MRI BRAIN W & W/O CONTRAST [MRI] Routine Exams 10/05/19 08:00 Ordered Assessment/Plan (1) Syncope and collapse Current Visit: Yes Status: Acute Assessment & Plan: Could be related to influenza, but he did have a previous episode of syncope also about a month and a half ago. Will get MRI brain and echocardiogram today. He has no local MD but plans to get a PCP after this stay. Code(s): R55 - SYNCOPE AND COLLAPSE (2) Influenza A Current Visit: Yes Status: Acute Assessment & Plan: Still febrile. He is better, and I would like him to stay until his fevers lessen, since the flu possibly made him ill enough to pass out prior to admission. Code(s): J10.1 - FLU DUE TO OTH IDENT INFLUENZA VIRUS W OTH RESP MANIFEST (3) Generalized weakness Current Visit: Yes Status: Acute Code(s): R53.1 - WEAKNESS (4) Hyperthyroidism Current Visit: Yes Status: Acute Assessment & Plan: May be subclinical; TSH was low but free T4 is normal (total T3 is pending). Code(s): E05.90 - THYROTOXICOSIS, UNSP WITHOUT THYROTOXIC CRISIS OR STORM
--- NOTE | 2019-10-05 08:37 | XRAY ---
Indication: Cough. Influenza. Comparison: None PA/lateral chest demonstrates normal heart and lungs. Bony thorax intact with moderate double curvature scoliosis.
[2019-10-05] MEDS: Sodium Chloride 0.9% 1000 ML 1,000 ML IV SCH ×2 (08:55→19:36)
[2019-10-05] MEDS: Tamiflu 75MG Capsule PO SCH ×2 (08:56→21:02)
[2019-10-05] MEDS ORDERED: Sodium Chloride 0.9% 500 ML 500 ML IV ONE (18:10)
[2019-10-05 18:44] LABS: Hematocrit 35.9 % (42-50); Hemoglobin 12.2 gm/dl (12.5-18.0); Mean Cell Volume 86.9 fl (78-100); Mean Corpuscular Hemoglobin 29.5 pg (26-32); Mean Platelet Volume 9.8 fl (7.5-11.0); Platelet Count 148 K/mm3 (150-450); Red Blood Count 4.13 M/mm3 (4.1-5.6); Red Cell Distribution Width 13.2 % (11.5-14.0); White Blood Count 3.8 K/mm3 (4.0-10.5)
[2019-10-05 18:59] LABS: ANION GAP 8.9 MEQ/L (5-15); BLOOD UREA NITROGEN 12 mg/dL (9-20); CHLORIDE 107 mmol/L (98-107); Calcium 8.1 mg/dL (8.4-10.2); Carbon Dioxide 25 mmol/L (22-30); Glucose 112 mg/dL (74-106); Potassium 3.4 mmol/L (3.5-5.1); SODIUM 138 mmol/L (137-145)
[2019-10-06] MEDS: Sodium Chloride 0.9% 1000 ML 1,000 ML IV SCH ×2 (05:28→16:47)
[2019-10-06] MEDS: Tamiflu 75MG Capsule PO SCH ×2 (09:41→20:47)
--- NOTE | 2019-10-06 10:36 | PCM.NOTE ---
Date and Time: 10/06/19 1031 Subjective Assessment: 24 yr old male seen and examined this am. Patient reports he is still having episodes of dizziness. He reports that he has had this for about 6 months. He reports that it can happen at anytime but it is mainly happening at work. He reports that he has never been told his bp is low before. Patient reports he did hit his head with fall but doesnt have any pain at this time. Patient would like to go home if possible. Patient has been on influenza therapy while in hospital. - Review of Systems Constitutional: Fever Ears, Nose, & Throat: Other (grandmother stated patient reported some ear pain earlier but patient denies any at this time.) Respiratory: Cough, No Short Of Breath Cardiac: Syncope, No Palpitations Abdominal/Gastrointestinal: No Abdominal Pain, No Nausea, No Vomiting, No Diarrhea, No Constipation Skin: No No Symptoms Neurological: Dizziness Objective Exam General Appearance: no apparent distress, alert, thin, No anxiety Neurologic Exam: oriented x 3, cooperative, normal mood/affect, other (Hx of autism) Skin Exam: normal color, warm, dry, No rash Eye Exam: other (patient has persistent beats of lateral nystagmus. This did not induce symptoms of dizziness) Ears, Nose, Throat Exam: moist mucous membranes Neck Exam: other (Bruit detected left side of neck) Respiratory Exam: normal breath sounds, No diminished breath sounds, No accessory muscle use, No crackles/rales, No wheezing Cardiovascular Exam: normal heart sounds, other (Noticed a few abnormal beats with palpation of pulse) Gastrointestinal/Abdomen Exam: soft, normal bowel sounds, No tenderness, No distention Extremity Exam: normal inspection OBJECTIVE DATA Vital Signs: Vital Signs - 24 hr Temp Pulse Resp BP Pulse Ox 10/06/19 08:00 99.4 F 61 17 99/55 98 10/06/19 04:00 99.5 F 66 18 114/52 97 10/06/19 00:00 16 10/05/19 23:58 98.8 F 71 16 99/58 97 10/05/19 22:00 102/55 10/05/19 21:00 59 L 102/52 10/05/19 20:00 62 22 95/51 10/05/19 19:00 99.1 F 73 17 116/57 96 10/05/19 18:10 82 22 97/50 10/05/19 17:50 100.7 F 71 20 74/38 94 L 10/05/19 16:38 100.8 F 75 18 110/62 96 10/05/19 16:00 20 10/05/19 12:00 99.5 F 74 20 98/52 97 Pain Assessment - Last Documented Pain Intensity 0 Pain Scale Used 0-10 Pain Scale Intake and Output: Intake & Output 10/03/19 10/04/19 10/05/19 10/06/19 11:59 11:59 11:59 11:59 Intake Total 2093 4511 Output Total 6173 1350 Balance 143 3161 Weight 46.6 kg 48.3 kg Lab Results: Lab Results-Last 24 Hours 10/05/19 10/05/19 10/05/19 Range/Units 18:35 18:35 19:45 WBC 3.8 L (4.0-10.5) K/mm3 RBC 4.13 (4.1-5.6) M/mm3 Hgb 12.2 L (12.5-18.0) gm/dl Hct 35.9 L (42-50) % MCV 86.9 (78-100) fl MCH 29.5 (26-32) pg MCHC 34.0 (32-36) g/dl RDW 13.2 (11.5-14.0) % Plt Count 148 L (150-450) K/mm3 MPV 9.8 (7.5-11.0) fl Sodium 138 (137-145) mmol/L Potassium 3.4 L (3.5-5.1) mmol/L Chloride 107 (98-107) mmol/L Carbon Dioxide 25 (22-30) mmol/L Anion Gap 8.9 (5-15) MEQ/L BUN 12 (9-20) mg/dL Creatinine 0.80 (0.66-1.25) mg/dL Estimated GFR > 60.0 ML/MIN Glucose 112 H (74-106) mg/dL Lactic Acid 0.7 (0.4-2.0) Calcium 8.1 L (8.4-10.2) mg/dL Radiology Exams: Radiology Procedures Category Date Time Status CHEST 2 VIEWS (PA AND LAT) Routine Exams 10/04/19 18:30 Completed ECHO W/2D AND DOPPLER [US] Routine Exams 10/05/19 09:00 Taken HEAD WITHOUT CONTRAST [CT] Stat Exams 10/04/19 09:38 Completed Assessment/Plan (1) Hypotension Current Visit: Yes Status: Acute Assessment & Plan: Unsure etiology echo results still pending. Patient reported feeling dizzy and almost passed out last night. Nurse reported a blood pressure of 74/38 pulse of 70 at the time patient was symptomatic. Patient has been febrile and has the flu which could contribute to hypotension leading to syncope. Patient had echo and results are still pending. Patient also was scheduled for MRI which was cancelled due to metal artifact which patient reports he does have some fillings in his teeth. Code(s): I95.9 - HYPOTENSION, UNSPECIFIED
[2019-10-06 11:52] LABS: Hematocrit 39.1 % (42-50); Hemoglobin 13.3 gm/dl (12.5-18.0); Mean Cell Volume 87.3 fl (78-100); Mean Corpuscular Hemoglobin 29.7 pg (26-32); Mean Platelet Volume 10.1 fl (7.5-11.0); Platelet Count 152 K/mm3 (150-450); Red Blood Count 4.48 M/mm3 (4.1-5.6); Red Cell Distribution Width 13.5 % (11.5-14.0); White Blood Count 4.7 K/mm3 (4.0-10.5)
[2019-10-06 12:19] LABS: BLOOD UREA NITROGEN 10 mg/dL (9-20); CHLORIDE 104 mmol/L (98-107); Calcium 8.7 mg/dL (8.4-10.2); Carbon Dioxide 31 mmol/L (22-30); Creatinine 1 0.78 mg/dL (0.66-1.25); Glucose 69 mg/dL (74-106); Potassium 3.8 mmol/L (3.5-5.1); SODIUM 141 mmol/L (137-145)
[2019-10-06 15:36] LABS: BAND 5 % (0.0-2.0); Lymphocytes 51 % (24-44); Monocyte 8 % (0.0-12.0); Neutrophils 36 % (36.-66.); Platelet Estimate NORMAL (NORMAL); Total Cells Counted 100
[2019-10-07] MEDS: Sodium Chloride 0.9% 1000 ML 1,000 ML IV SCH (02:55)
[2019-10-07] MEDS: Tamiflu 75MG Capsule PO SCH (09:44)
[2019-10-07] MEDS ORDERED: PROAMATINE 5 MG PO SCH (10:45)
--- NOTE | 2019-10-07 12:36 | PCM.DS ---
Discharge Summary Date of Admission: 10/04/19 11:49 Date of Discharge: 10/07/19 Admitting Physician: FRANCI PRICE Primary Care Provider: NO FAMILY DOCTOR Allergies Allergies No Known Drug Allergies Allergy (Unverified 10/04/19 09:38) Hospital Summary - Hospital Course Hospital Course: is a 24 year old male pt with no local MD, with high functioning autism , who came to ER after syncopal episode last night. He is a fairly poor historian. He was found to have Influenza A and does state he's had a cough for "a while" but less than a week. He was standing in a meeting, started feeling hot, tried to sit down and missed and passed completely out. About a month and a half ago he passed out as well. Patient was started on Tamiflu in hosp and has almost completed the course of this medication. Patient had some episodes of feeling dizzy and when his blood pressure was checked he was found to be hypotensive with a bp of 74/38. Patient had orthostatics performed that were wnl. Patient has also had some reported low blood sugars as well. Patient was found to have a low TSH during hospital admission. His t3 and t4 were wnl. Patient will likely need further workup as outpatient for hypotension, hypoglycemia and hyperthyroidism. Patient reports these dizzy episodes only happen and work and Grandmother is concerned that they happen when patient gets stressed or anxious. They report that patient is not on medicine for anxiety and has never been on medication for this. Plan to DC patient to home with further plans to work up his acute issues. - Vitals & Intake/Output Vital Signs: Vital Signs Temperature 99.0 F 10/07/19 12:00 Pulse Rate 58 L 10/07/19 12:00 Respiratory Rate 16 10/07/19 12:00 Blood Pressure 92/60 10/07/19 12:00 O2 Sat by Pulse Oximetry 97 10/07/19 12:00 Intake & Output: Intake & Output 10/05/19 10/06/19 10/07/19 10/08/19 11:59 11:59 11:59 11:59 Intake Total 2093 4511 3840 Output Total 1950 1350 Balance 143 3161 3840 Weight 48.3 kg - Lab Result Diagrams: 10/06/19 11:40 10/06/19 11:40 Lab Results-Last 24 Hrs: Accuchecks Date 10/07/19 Date 10/07/19 Date 10/06/19 Time 12:24 Time 08:15 Time 16:57 Accucheck Value: 104 Accucheck Value: 112 Accucheck Value: 123 Lab Results-Last 24 Hours 10/04/19 10/06/19 10/06/19 Range/Units 09:30 11:40 15:30 Segmented Neutrophils 36 (36.-66.) % Band Neutrophils 5 H (0.0-2.0) % Lymphocytes (Manual) 51 H (24-44) % Monocytes (Manual) 8 (0.0-12.0) % Platelet Estimate NORMAL (NORMAL) RBC Morphology NORMAL Hemoglobin A1c 4.99 (4.5-6.0) % T3 (OLIVA) 115 (80-200) ng/dL Micro Results-Entire Visit: Microbiology 10/04/19 10:33 Blood Culture - Preliminary Blood NO GROWTH TO DATE Accuchecks Date 10/07/19 Date 10/07/19 Date 10/06/19 Time 12:24 Time 08:15 Time 16:57 Accucheck Value: 104 Accucheck Value: 112 Accucheck Value: 123 - Procedures and Test Procedures and Tests throughout Hospitalization: Therapy Orders & Screens 10/04/19 13:22 Smoking Cessation Education ONCE Comment: Diagnosis: syncope Smoking Status: Current every day smoker How long have you smoked: 5 years Approximately how many cigarettes per day: 1/2-1 PPD Do you dip or chew tobacco: No Discharge Exam General Appearance: no apparent distress, anxiety, thin Neurologic Exam: alert, oriented x 3, cooperative, normal mood/affect (Patient does have diagnosis of autism), No confusion, No uncooperative Eye Exam: other (Patient was glasses and has lateral nystagmus) Ears, Nose, Throat Exam: moist mucous membranes Neck Exam: normal inspection (Patient does have a large laryngeal prominence) Respiratory Exam: normal breath sounds, lungs clear, No respiratory distress, No diminished breath sounds, No crackles/rales, No wheezing Cardiovascular Exam: regular rate/rhythm, other (Intermittent bradycardic of 57 beats per min usually 60 bpm) Gastrointestinal/Abdomen Exam: soft, normal bowel sounds, No tenderness, No distention Male Genitalia Exam: deferred Rectal Exam: deferred Back Exam: normal inspection Extremity Exam: normal inspection Skin Exam: normal color, warm, dry, No rash Final Diagnosis/Problem List - Final Discharge Diagnosis/Problem (1) Influenza A Current Visit: Yes Status: Acute Assessment & Plan: Patient passed out at work and was brought to hospital and found to be positive for influenza A. Patient has received Tamiflu and will be discharged on this medication with his remaining doses. Code(s): J10.1 - FLU DUE TO OTH IDENT INFLUENZA VIRUS W OTH RESP MANIFEST (2) Hypotension Current Visit: Yes Status: Acute Assessment & Plan: Initially related to his acute illness. Patient has been receiving IV fluids including fluid bolus and has still been found to be hypotensive. Patient was started on midodrine today. Will continue to monitor him on this medication. Still in process of finding primary cause for his hypotension Code(s): I95.9 - HYPOTENSION, UNSPECIFIED (3) Hyperthyroidism Current Visit: Yes Status: Acute Assessment & Plan: New diagnosis. Patient will need to get thyroid US as outpatient. We will get repeat TSH and start patient on medication for hyperthyroidism after results of US Code(s): E05.90 - THYROTOXICOSIS, UNSP WITHOUT THYROTOXIC CRISIS OR STORM (4) Syncope and collapse Current Visit: Yes Status: Acute Assessment & Plan: Patient has had some hypoglycemia and hypotension during hospital admission. He will need further work up as outpatient for cause of syncope as no clear cause was found. CT head was neg and MRI was cancelled due to metal artifact of unknown etiology Code(s): R55 - SYNCOPE AND COLLAPSE (5) Autism Current Visit: Yes Status: Acute Assessment & Plan: Unsure when he was diagnosed and who he sees on a regular basis. He is highly functioning and works a regular job. Code(s): F84.0 - AUTISTIC DISORDER - Discharge Disposition: Home, Self-Care Condition: Stable Prescriptions: New Blood-Glucose Meter [[employer] All-in-One] 1 each ACHS 30 Days #1 kit Midodrine HCl 5 mg [Proamatine 5 mg] 5 mg PO DAILY #30 tablet Oseltamivir 75 mg [Tamiflu 75MG Capsule] 75 mg PO BID 3 Days #4 cap Follow up with: DOCTOR,NO FAMILY [Primary Care Provider] - 1 Week
[2019-10-07 14:05] VITALS: BP 121/55; PULSE 66; O2SAT 99
--- NOTE | 2019-10-09 14:28 | ECHO ---
DATE OF PROCEDURE: 10/05/2019 CLINICAL INFORMATION: Syncope. The M-mode 2D, and Doppler echocardiogram including color flow Doppler shows the left ventricle is normal in size at 5.0 cm. There is no thrombus noted. The septal wall thickness is normal at 1.1 cm. The left ventricular posterior wall thickness is normal at 0.9 cm. The contractility of the left ventricle is normal with an ejection fraction calculated at 67%. The right ventricle is normal. The left atrium is normal at 3.2 cm. The interatrial septum is intact. The right atrium is normal. The aortic valve opens well and is trileaflet. There is no aortic regurgitation. There is mitral valve leaflet thickening. There is mild tricuspid regurgitation. The right ventricular systolic pressure is normal at 29 mm of [place]. The pulmonic valve is not well visualized. The aortic root is normal at 2.7 cm. There is no pericardial effusion present. IMPRESSION: 1) NORMAL CONTRACTILITY OF THE LEFT VENTRICLE. 2) MILD TRICUSPID REGURGITATION. 3) NORMAL RIGHT VENTRICULAR SYSTOLIC PRESSURE.
== END 2019-10-07 15:00 | disposition home or self-care (01) ==
LOC: ED 09:21 → MED SURG 11:49
PROVIDERS: ADMIT Family Medicine; ATTEND Family Medicine
DX: J10.1 Influenza due to other identified influenza virus with other respiratory manifestations (principal); I95.9 Hypotension, unspecified; E05.90 Thyrotoxicosis, unspecified without thyrotoxic crisis or storm; R55 Syncope and collapse; F84.0 Autistic disorder; R53.1 Weakness
CPT/HCPCS: 36415; 70450; 71046; 80048; 80053; 80307; 81001; 82962; 83036; 83605; 84439; 84443; 84480; 84484; 85025; 85027; 85379; 85610; 87040; 87631; 93005; 93041; 93268; 93306; 94760; 96360; 99285; A9270-GY; G0378